=== PATIENT | male | born 1970 | race Caucasian/White ===

== ENCOUNTER 2016-08-18 22:57 | Observation (INO) | payer SELFPAY ==
[2016-08-18 23:03] VITALS: BMI 27.1
--- NOTE | 2016-08-18 23:26 | ED PDOC ---
Arrival/HPI - General Chief Complaint: Alcohol Ingestion Time Seen by Provider: 08/18/16 23:04 Historian: Patient, EMS - History of Present Illness Narrative History of Present Illness (Text): 08/18/16 23:15 57 year old male who presents to the Emergency department brought in by EMS for public intoxication. Patient was found outside inebriated by police. Patient admits to drinking alcohol tonight. Patient denies any fever, chills, chest pain , shortness of breath, nausea, vomiting, diarrhea, urinary symptoms, back pain, neck pain, headache, dizziness, or any other complaints. Time/Duration: Other (tonight) Symptom Onset: Gradual Symptom Course: Unchanged Activities at Onset: Rest, Light Context: Street Past Medical History - Provider Review Nursing Documentation Reviewed: Yes - Infectious Disease Hx of Infectious Diseases: None - Psychiatric Hx Substance Use: No (unobtainable) - Anesthesia Hx Anesthesia: No Family/Social History - Physician Review Nursing Documentation Reviewed: Yes Family/Social History: No Known Family HX Smoking Status: Unknown If Ever Smoked Hx Alcohol Use: Yes Hx Substance Use: No (unobtainable) Allergies/Home Meds Allergies/Adverse Reactions: Allergies Unobtainable Allergy (Verified 08/18/16 23:03) Review of Systems - Physician Review All systems were reviewed & negative as marked: Yes - Review of Systems Constitutional: Normal. absent: Fevers Eyes: Normal ENT: Normal Respiratory: Normal. absent: SOB, Cough Cardiovascular: Normal. absent: Chest Pain Gastrointestinal: Normal. absent: Abdominal Pain, Diarrhea, Nausea, Vomiting Genitourinary Male: Normal. absent: Dysuria, Frequency, Hematuria, Urinary Output Changes Musculoskeletal: Normal. absent: Back Pain, Neck Pain Skin: Normal. absent: Rash Neurological: Normal. absent: Headache, Dizziness Endocrine: Normal Hemo/Lymphatic: Normal Psychiatric: Other (+alcohol intoxication) Physical Exam Vital Signs Reviewed: Yes Vital Signs Temp Pulse Resp BP Pulse Ox 08/18/16 22:58 98.2 F 78 18 148/76 98 Temperature: Afebrile Blood Pressure: Normal Pulse: Regular Respiratory Rate: Normal Appearance: Positive for: Well-Appearing, Non-Toxic, Comfortable Pain Distress: None Mental Status: Positive for: Alert and Oriented X 3 - Systems Exam Head: Present: Atraumatic, Normocephalic Pupils: Present: PERRL Extroacular Muscles: Present: EOMI Conjunctiva: Present: Normal Mouth: Present: Moist Mucous Membranes Neck: Present: Normal Range of Motion Respiratory/Chest: Present: Clear to Auscultation, Good Air Exchange. No: Respiratory Distress, Accessory Muscle Use Cardiovascular: Present: Regular Rate and Rhythm, Normal S1, S2. No: Murmurs Abdomen: Present: Normal Bowel Sounds. No: Tenderness, Distention, Peritoneal Signs Back: Present: Normal Inspection Upper Extremity: Present: Normal Inspection. No: Cyanosis, Edema Lower Extremity: Present: Normal Inspection. No: Edema Neurological: Present: GCS=15, CN II-XII Intact, Speech Normal Skin: Present: Warm, Dry, Normal Color. No: Rashes Psychiatric: Present: Alert, Oriented x 3, Normal Insight, Normal Concentration Medical Decision Making ED Course and Treatment: 08/18/16 23:20 Impression: 57 year old male brought in for alcohol intoxication Differential Diagnosis include but are not limited to: alcohol intoxication Plan: -- Reassess and disposition Progress Notes: ED OBSERVATION Discharge: Yes Date of observation admission: 08/18/16 Time of observation admission: 23:15 - Observation admission statement Patient is being placed in observation because:: alcohol intoxication - Goals of Observation Goals of observation are:: observe for signs of withdrawal, sobriety - Progress Note Progress Note: 08/18/16 23:15 Pt brought in by EMS for public intoxication. Will observe pending sobriety. 08/19/16 00:34 Pt resting comfortably, in no acute distress. Family present at bedside. Pt discharged to custody of family. - Scribe Statement The provider has reviewed the documentation as recorded by the Scribsarath Lo All medical record entries made by the Sparkleibsarath were at my direction and personally dictated by me. I have reviewed the chart and agree that the record accurately reflects my personal performance of the history, physical exam, medical decision making, and the department course for this patient. I have also personally directed, reviewed, and agree with the discharge instructions and disposition. Disposition/Present on Arrival - Present on Arrival Any Indicators Present on Arrival: No History of DVT/PE: No History of Uncontrolled Diabetes: No Urinary Catheter: No History of Decub. Ulcer: No History Surgical Site Infection Following: None - Disposition Have Diagnosis and Disposition been Completed?: Yes Diagnosis: Alcohol intoxication Disposition: HOME/ ROUTINE Disposition Time: 00:35 Patient Plan: Discharge Patient Problems: Current Active Problems Problem Status Onset Alcohol intoxication Acute Condition: STABLE
[2016-08-19 00:01] VITALS: BP 148/76; PULSE 78; RESP 18; TEMP 98.2; O2SAT 98
== END 2016-08-19 02:29 | disposition home or self-care (01) ==
LOC: ED 22:57 → EDBD 23:15 → EROBSV 23:15
PROVIDERS: ADMIT Emergency Medicine; ATTEND Emergency Medicine
DX: F10.129 Alcohol abuse with intoxication, unspecified (principal)
CPT/HCPCS: 99281; G0378

== ENCOUNTER 2016-11-23 17:19 | Emergency (ER) | payer OTHER ==
[2016-11-23 17:23] VITALS: BMI 28.2
[2016-11-23 17:25] VITALS: BP 151/93; PULSE 79; RESP 18; TEMP 98.6; O2SAT 98
--- NOTE | 2016-11-23 18:57 | ED PDOC ---
Arrival/HPI - General Chief Complaint: Back Pain Time Seen by Provider: 11/23/16 17:34 Historian: Patient - History of Present Illness Narrative History of Present Illness (Text): 11/23/16 18:51 A 46 year old male presents to the emergency department complaining of left lower back pain for 5 days. Patient reports his pain began after moving a refrigerator at home. Patient notes radiating pain down his left leg. He reports he was in a work accident 1 year ago and developed 3 herniated discs. Patient attended physical therapy which helped resolve 2 discs and states he still has 1 herniated disc. Patient denies any fever, chills, nausea, vomiting, abdominal pain, urinary symptoms, bowel or bladder incontinence, chest pain, shortness of breath, lower extremity weakness or numbness, or any other complaints. PMD [place] Time/Duration: Other (5 days) Symptom Course: Unchanged Quality: Other Context: Home Past Medical History - Provider Review Nursing Documentation Reviewed: Yes - Infectious Disease Hx of Infectious Diseases: None - Psychiatric Hx Substance Use: No (unobtainable) - Anesthesia Hx Anesthesia: No Family/Social History - Physician Review Nursing Documentation Reviewed: Yes Family/Social History: No Known Family HX Smoking Status: Never Smoked Hx Alcohol Use: Yes Frequency of alcohol use: Socially Hx Substance Use: No (unobtainable) Allergies/Home Meds Allergies/Adverse Reactions: Allergies No Known Allergies Allergy (Verified 11/23/16 17:24) Review of Systems - Physician Review All systems were reviewed & negative as marked: Yes - Review of Systems Constitutional: absent: Fevers, Night Sweats Respiratory: absent: SOB Cardiovascular: absent: Chest Pain Gastrointestinal: absent: Abdominal Pain, Nausea, Vomiting Genitourinary Male: absent: Dysuria, Frequency, Hematuria, Urinary Output Changes Musculoskeletal: Back Pain (lower back paion radiaitng down left lower extermity ) Neurological: absent: Focal Weakness (/numbness) Physical Exam Vital Signs Reviewed: Yes Vital Signs Temp Pulse Resp BP Pulse Ox 11/23/16 17:25 98.6 F 79 18 151/93 H 98 Temperature: Afebrile Blood Pressure: Hypertensive Pulse: Regular Respiratory Rate: Normal Appearance: Positive for: Well-Appearing, Non-Toxic, Comfortable Pain Distress: Mild Mental Status: Positive for: Alert and Oriented X 3 - Systems Exam Head: Present: Atraumatic, Normocephalic Pupils: Present: PERRL Extroacular Muscles: Present: EOMI Conjunctiva: Present: Normal Mouth: Present: Moist Mucous Membranes Neck: Present: Normal Range of Motion Respiratory/Chest: Present: Clear to Auscultation, Good Air Exchange. No: Respiratory Distress, Accessory Muscle Use Cardiovascular: Present: Regular Rate and Rhythm, Normal S1, S2. No: Murmurs Abdomen: Present: Normal Bowel Sounds. No: Tenderness, Distention, Peritoneal Signs Back: Present: Other (Point tenderness in L5). No: Pain with Leg Raise Upper Extremity: Present: Normal Inspection. No: Cyanosis, Edema Lower Extremity: Present: Normal Inspection. No: Edema Neurological: Present: GCS=15, CN II-XII Intact, Speech Normal Skin: Present: Warm, Dry, Normal Color. No: Rashes Psychiatric: Present: Alert, Oriented x 3, Normal Insight, Normal Concentration Medical Decision Making ED Course and Treatment: 11/23/16 18:51 Impression: A 46 year old male with lower back pain radiating down left lower extremity. Plan: -- LS spine -- Flexeril and Toradol -- Reassess and disposition Progress Notes: XR L spine : (-) fracture, (+) straightening of the spine, as read by PA. On re-evaluation, pt feels much improved. Reports no other complaints at this time. XR results d/w the pt in great detail. Pt advised of likely diagnosis of lumbar strain, with possible sciatica. Advised of the need to f/u with pmd and with referral provided. Advised to take medication as prescribed. Return to the emergency room at any time for any new or worsening symptoms. Patient states he fully agrees with and understands discharge instructions. States that he agrees with the plan and disposition. Verbalized and repeated discharge instructions and plan. I have given the patient opportunity to ask any additional questions. - RAD Interpretation Radiology Orders: 11/23/16 17:58 LS SPINE WITH OBL > 18 YRS OLD [RAD] Stat - Medication Orders Current Medication Orders: Discontinued Medications Cyclobenzaprine HCl (Flexeril) 10 mg PO STAT STA Stop: 11/23/16 17:59 Last Admin: 11/23/16 18:34 Dose: 10 mg Ketorolac Tromethamine (Toradol) 60 mg IM STAT STA Stop: 11/23/16 17:59 Last Admin: 11/23/16 18:34 Dose: 60 mg - PA / INTERIOR [employer] / Resident Statement MD/DO has reviewed & agrees with the documentation as recorded. - Scribe Statement The provider has reviewed the documentation as recorded by the Trevor Lai Provider Scribe Attestation: All medical record entries made by the Scribe were at my direction and personally dictated by me. I have reviewed the chart and agree that the record accurately reflects my personal performance of the history, physical exam, medical decision making, and the department course for this patient. I have also personally directed, reviewed, and agree with the discharge instructions and disposition. Disposition/Present on Arrival - Present on Arrival Any Indicators Present on Arrival: No History of DVT/PE: No History of Uncontrolled Diabetes: No Urinary Catheter: No History of Decub. Ulcer: No History Surgical Site Infection Following: None - Disposition Have Diagnosis and Disposition been Completed?: Yes Diagnosis: Lumbar strain, Sciatica Disposition: HOME/ ROUTINE Disposition Time: 19:00 Patient Plan: Discharge Condition: IMPROVED Discharge Instructions (ExitCare): Sciatica (ED), Back Pain (ED) Print Language: NORWEGI[place] Additional Instructions: Thank you for letting us take care of you today. You were treated for lumbar strain, with possible sciatica. The emergency medical care you received today was directed at your acute symptoms. If you were prescribed any medication, please fill it and take as directed. It may take several days for your symptoms to resolve. Return to the Emergency Department if your symptoms worsen, do not improve, or if you have any other problems. Please contact your doctor in 2 days for re-evaluation and follow up / or call one of the physicians/clinics you have been referred to that are listed on the Patient Visit Information form that is included in your discharge packet. Bring any paperwork you were given at discharge with you along with any medications you are taking to your follow up visit. Our treatment cannot replace ongoing medical care by a primary care provider (PCP) outside of the emergency department. Thank you for allowing the [facility] team to be part of your care today. Prescriptions: Cyclobenzaprine [Cyclobenzaprine HCl] 10 mg PO TID PRN #15 tab PRN Reason: Muscle Spasm Meloxicam [Mobic] 15 mg PO DAILY #30 tab Referrals: Trey Harmon MD [Primary Care Provider] - Follow up with primary [facility] MD [Staff Provider] - Follow up with primary Forms: [employer] (Serbian)
--- NOTE | 2016-11-24 14:32 | RAD ---
PROCEDURE: Radiographs of the Lumbar Spine. HISTORY: back pain COMPARISON: No prior. FINDINGS: BONES: Mild straightening of the normal lumbar lordosis. The AP spinal canal appear shallow at the L4 and L5 levels lateral view. No listhesis. No fracture. . Minimal spondylotic ridging L4 and L5 DISC SPACES: Minimal L5-S1 disc space narrowing OTHER FINDINGS: Minimal L5-S1 facet hypertrophic arthrosis. IMPRESSION: No fracture or subluxation. Minimal inferior lumbar spondylosis. Minimal L5-S1 disc space narrowing
== END 2016-11-23 19:32 | disposition home or self-care (01) ==
LOC: ED 17:19
DX: S39.012A Strain of muscle, fascia and tendon of lower back, initial encounter (principal); X50.9XXA Other and unspecified overexertion or strenuous movements or postures, initial encounter; Y92.009 Unspecified place in unspecified non-institutional (private) residence as the place of occurrence of the external cause; M54.30 Sciatica, unspecified side
CPT/HCPCS: 72110; 96372; 99283; J1885